=== PATIENT | male | born 1980 | race Hispanic/Latino ===

== ENCOUNTER 2021-12-22 20:49 | Emergency (ER) | payer OTHER ==
[2021-12-22] MEDS ORDERED: NA CHLORIDE 0.9% 1,000 ML ONE (21:15)
[2021-12-22] MEDS ORDERED: ASPIRIN 81 MG CHEWABLE TABLET ONE (21:15)
[2021-12-22 21:34] LABS: Hematocrit 37.7 % (39.6-49.0); MPV 8.4 fL (7.6-11.3); RBC Red Blood Cell Count 4.42 M/uL (4.33-5.43)
--- NOTE | 2021-12-22 21:39 | RAD REPORT ---
EXAM DESCRIPTION: RAD - Chest Single View - 12/22/2021 9:32 pm CLINICAL HISTORY: CHEST PAIN COMPARISON: <Comparisons> FINDINGS: Lines: None. Lungs: No evidence of edema or pneumonia. Pleural: No significant pleural effusions or pneumothorax. Cardiac: The heart size is within normal limits. Bones: No acute fractures. Other: IMPRESSION: No acute cardiopulmonary disease.
[2021-12-22 21:53] LABS: ALT/SGPT 15 U/L (12-78); AST/SGOT 8 U/L (15-37); Albumin 4.1 g/dL (3.4-5.0); Alkaline Phosphatase 93 U/L (45-117); BUN Blood Urea Nitrogen 17 mg/dL (7-18); Bicarbonate 24 mmol/L (21-32); Bilirubin Total 0.2 mg/dL (0.2-1.0); Glomerular Filtration Rate 98 ml/min (=/>90); Glucose Level 94 mg/dL (74-106); Lipase 134 U/L (73-393); Magnesium 2.2 mg/dL (1.8-2.4); NT PRO-BNP 35 pg/mL (<125); Potassium 3.7 mmol/L (3.5-5.1); Protein, Total 7.2 g/dL (6.4-8.2); Sodium Level 140 mmol/L (136-145); Troponin High Sensitivity 3.1 pg/mL (<58.9)
[2021-12-22 21:54] LABS: Bilirubin Direct < 0.1 mg/dL (0-0.2)
[2021-12-22 23:17] LABS: Barbiturates NEGATIVE (NEGATIVE); Benzodiazepines NEGATIVE (NEGATIVE); Cocaine NEGATIVE (NEGATIVE); METHAMPHETAM NEGATIVE (NEGATIVE); Methadone NEGATIVE (NEGATIVE); Opiates NEGATIVE (NEGATIVE); Phencyclidine NEGATIVE (NEGATIVE); THC Cannibis NEGATIVE (NEGATIVE)
--- NOTE | 2021-12-23 01:02 | ER ---
Nurse's Notes [facility] Name: Yair Negrete Age: 41 yrs Sex: Male : 1980 Arrival Date: 12/22/2021 Time: 20:51 Bed 7 Private MD: Diagnosis: Chest pain, unspecified Presentation: 12/22 21:02 Chief complaint: Patient states: started having chest pain around 1845 that radiates to sm5 L side of his neck and L arm. Coronavirus screen: Vaccine status: Patient reports being unvaccinated. Ebola Screen: No symptoms or risks identified at this time. Initial Sepsis Screen: Does the patient meet any 2 criteria? No. Patient's initial sepsis screen is negative. Does the patient have a suspected source of infection? No. Patient's initial sepsis screen is negative. Risk Assessment: Do you want to hurt yourself or someone else? Patient reports no desire to harm self or others. Onset of symptoms was December 22, 2021. 21:02 Method Of Arrival: Law Enforcement: [place] [employer] [facility] 21:02 Acuity: TISHA 3 sm5 Triage Assessment: 21:06 General: Appears in no apparent distress. Behavior is cooperative. Pain: Complains of sm5 pain in chest and left arm. Neuro: No deficits noted. Villagran Agitation-Sedation Scale (RASS): 0 - Alert and Calm Level of Consciousness is awake, alert, obeys commands, Oriented to person, place, time, situation. Cardiovascular: Reports chest pain, Capillary refill < 3 seconds Patient's skin is warm and dry. Respiratory: No deficits noted. Airway is patent Trachea midline Respiratory effort is even, unlabored. GI: No deficits noted. Historical: - Allergies: 21:04 No Known Allergies; sm5 - Home Meds: 21:04 None [Active]; sm5 - PMHx: 21:04 None; sm5 - Immunization history:: Client reports having NOT received the Covid vaccine. - Social history:: Smoking status: Patient denies any tobacco usage or history of. - Family history:: Mother has/had heart disease, Grandmother has/had heart disease, hypertension. Screenin:05 Abuse screen: Denies threats or abuse. Denies injuries from another. Nutritional sm5 screening: No deficits noted. Tuberculosis screening: No symptoms or risk factors identified. Fall Risk None identified. Assessment: 22:00 Reassessment: see triage assessment. 5 23:00 Reassessment: No changes from previously documented assessment. Patient and/or family [facility] updated on plan of care and expected duration. Pain level reassessed. 12/23 00:00 Reassessment: No changes from previously documented assessment. 5 01:00 Reassessment: No changes from previously documented assessment. Patient is alert, [facility] oriented x 3, equal unlabored respirations, skin warm/dry/pink. Vital Signs: 12/22 21:02 BP 127 / 79; Pulse 74; Resp 18; Temp 98.6(O); Pulse Ox 99% on R/A; Weight 68.04 kg; 5 Height 5 ft. 6 in. (167.64 cm); 23:00 BP 103 / 73; Pulse 64; Resp 19; Pulse Ox 98% on R/A; 5 12/23 00:00 BP 100 / 73; Pulse 63; Resp 17; Pulse Ox 96% on R/A; 5 01:00 BP 109 / 78; Pulse 59; Resp 17; Pulse Ox 98% on R/A; 5 12/22 21:02 Body Mass Index 24.21 (68.04 kg, 167.64 cm) [facility] ED Course: 12/22 20:51 Patient arrived in ED. [facility] 21:02 Frank Ewing MD is Attending Physician. [facility] 21:02 Keerthi Damian, JOSH is Primary Nurse. [facility] 21:04 Triage completed. [facility] 21:05 Arm band placed on right wrist. [facility] 21:06 Patient has correct armband on for positive identification. Bed in low position. Call [facility] light in reach. Side rails up X2. Client placed on continuous cardiac and pulse oximetry monitoring. NIBP monitoring applied. 21:07 Inserted saline lock: 20 gauge in right antecubital area, using aseptic technique. [facility] Blood collected. 21:34 XRAY Chest (1 view) In Process Unspecified. EDMS 22:59 UDS Sent. [facility] 12/23 01:15 IV discontinued, intact, bleeding controlled, No redness/swelling at site. Pressure [facility] dressing applied. 02:47 No provider procedures requiring assistance completed. [facility] Administered Medications: 12/22 21:23 Drug: NS 0.9% 1000 ml Route: IV; Rate: 1 bolus; Site: right antecubital; sm5 22:30 Follow up: IV Status: Completed infusion; IV Intake: 1000ml 5 21:23 Drug: Aspirin 81 mg Route: PO; 5 Medication: 21:06 VIS not applicable for this client. sm5 Intake: 22:30 IV: 1000ml; Total: 1000ml. sm5 Outcome: 12/23 01:02 Discharge ordered by MD. boles 01:15 Discharged to Law Enforcement 5 01:15 Condition: stable 01:15 Discharge instructions given to patient, Instructed on discharge instructions, follow up and referral plans. Demonstrated understanding of instructions, follow-up care. 02:48 Patient left the ED. sm5 Signatures: Dispatcher [employer] EDFrank Linda MD MD cha Mazur, Sarah, RN RN sm5
--- NOTE | 2021-12-23 01:02 | EDPHYS ---
Physician Documentation [facility] Name: Yair Negrete Age: 41 yrs Sex: Male : 1980 Arrival Date: 12/22/2021 Time: 20:51 Bed 7 Private MD: ZARIA Physician Frank Ewing HPI: 12/22 23:32 This 41 yrs old Male presents to ER via Law Enforcement with complaints of cp ramana on off since 630pm. 23:32 The patient has shortness of breath at rest, with light activity. Onset: The ramana symptoms/episode began/occurred 6 hour(s) ago. Duration: The symptoms are intermittent, with no pattern. The patient's shortness of breath has no apparent modifying factors. The patient or guardian reports chest pain that is located primarily in the anterior chest wall, bilaterally. The pain does not radiate. Associated signs and symptoms: The patient has no apparent associated signs or symptoms. Severity of symptoms: At their worst the symptoms were mild in the emergency department the symptoms are unchanged. Associated signs and symptoms: The patient has no apparent associated signs or symptoms. The chest pain is described as aching, sharp. Historical: - Allergies: 21:04 No Known Allergies; sm5 - Home Meds: 21:04 None [Active]; sm5 - PMHx: 21:04 None; sm5 - Immunization history:: Client reports having NOT received the Covid vaccine. - Social history:: Smoking status: Patient denies any tobacco usage or history of. - Family history:: Mother has/had heart disease, Grandmother has/had heart disease, hypertension. ROS: 23:32 Constitutional: Negative for fever, chills, and weight loss, Eyes: Negative for injury, ramana pain, redness, and discharge, ENT: Negative for injury, pain, and discharge, Neck: Negative for injury, pain, and swelling, Respiratory: Negative for shortness of breath, cough, wheezing, and pleuritic chest pain, Abdomen/GI: Negative for abdominal pain, nausea, vomiting, diarrhea, and constipation, Back: Negative for injury and pain, : Negative for injury, bleeding, discharge, and swelling, MS/Extremity: Negative for injury and deformity, Skin: Negative for injury, rash, and discoloration, Neuro: Negative for headache, weakness, numbness, tingling, and seizure, Psych: Negative for depression, anxiety, suicide ideation, homicidal ideation, and hallucinations, Allergy/Immunology: Negative for hives, rash, and allergies, Endocrine: Negative for neck swelling, polydipsia, polyuria, polyphagia, and marked weight changes, Hematologic/Lymphatic: Negative for swollen nodes, abnormal bleeding, and unusual bruising. 23:32 Cardiovascular: Positive for chest pain. Exam: 23:32 Constitutional: This is a well developed, well nourished patient who is awake, alert, ramana and in no acute distress. Head/Face: Normocephalic, atraumatic. Eyes: Pupils equal round and reactive to light, extra-ocular motions intact. Lids and lashes normal. Conjunctiva and sclera are non-icteric and not injected. Cornea within normal limits. Periorbital areas with no swelling, redness, or edema. ENT: Nares patent. No nasal discharge, no septal abnormalities noted. Tympanic membranes are normal and external auditory canals are clear. Oropharynx with no redness, swelling, or masses, exudates, or evidence of obstruction, uvula midline. Mucous membranes moist. Neck: Trachea midline, no thyromegaly or masses palpated, and no cervical lymphadenopathy. Supple, full range of motion without nuchal rigidity, or vertebral point tenderness. No Meningismus. Chest/axilla: Normal chest wall appearance and motion. Nontender with no deformity. No lesions are appreciated. Cardiovascular: Regular rate and rhythm with a normal S1 and S2. No gallops, murmurs, or rubs. Normal PMI, no JVD. No pulse deficits. Respiratory: Lungs have equal breath sounds bilaterally, clear to auscultation and percussion. No rales, rhonchi or wheezes noted. No increased work of breathing, no retractions or nasal flaring. Abdomen/GI: Soft, non-tender, with normal bowel sounds. No distension or tympany. No guarding or rebound. No evidence of tenderness throughout. Back: No spinal tenderness. No costovertebral tenderness. Full range of motion. Male : Normal genitalia with no discharge or lesions. Skin: Warm, dry with normal turgor. Normal color with no rashes, no lesions, and no evidence of cellulitis. MS/ Extremity: Pulses equal, no cyanosis. Neurovascular intact. Full, normal range of motion. Neuro: Awake and alert, GCS 15, oriented to person, place, time, and situation. Cranial nerves II-XII grossly intact. Motor strength 5/5 in all extremities. Sensory grossly intact. Cerebellar exam normal. Normal gait. Psych: Awake, alert, with orientation to person, place and time. Behavior, mood, and affect are within normal limits. 23:32 ECG was reviewed by the Attending Physician. Vital Signs: 21:02 BP 127 / 79; Pulse 74; Resp 18; Temp 98.6(O); Pulse Ox 99% on R/A; Weight 68.04 kg; [facility] Height 5 ft. 6 in. (167.64 cm); 23:00 BP 103 / 73; Pulse 64; Resp 19; Pulse Ox 98% on R/A; [facility] 12/23 00:00 BP 100 / 73; Pulse 63; Resp 17; Pulse Ox 96% on R/A; [facility] 01:00 BP 109 / 78; Pulse 59; Resp 17; Pulse Ox 98% on R/A; [facility] 12/22 21:02 Body Mass Index 24.21 (68.04 kg, 167.64 cm) [facility] MDM: 12/22 21:02 Patient medically screened. [place] 23:50 Differential diagnosis: Bronchitis abnormal EKG, acute myocardial infarction, acute ramana pericarditis, coronary artery disease Cholelithiasis costochondritis, esophagitis, gastritis, hiatal hernia, pneumonia, Pulmonary Embolism Unstable Angina. Antibiotic administration: Not indicated. HEART Score: History: Slightly Suspicious (0), ECG: Normal (0), Age: < or = 45 years (0), Risk Factors: No Risk Factors Known (0), Troponin: < or = 1 x Normal Limit (0). The patient's Wells Deep Vein Thrombosis Score was calculated as follows: Total Score: 0. This patient was found to be at low risk for a deep vein thrombosis by using the Well's assessment criteria Total Score: 0-2 Pts- Low Risk. The patient's pulmonary embolism risk score was calculated as follows: Total Score: 0-2 points. This patient was found to be at low risk for a pulmonary embolism by using the Well's assessment criteria Total Score: 0-2 points. This patient was found to be at low risk for a pulmonary embolism by using the Well's assessment criteria. [place] Risk Score: TOTAL SCORE = 0. Immunization status:. Data reviewed: vital signs, nurses notes, EMS record, radiologic studies, plain films. Data interpreted: mechanical assembler: rate is 74 beats/min, rhythm is regular, Pulse oximetry: on room air is 99 %. Test interpretation: by ED physician or midlevel provider: ECG, plain radiologic studies. Counseling: I had a detailed discussion with the patient and/or guardian regarding: the historical points, exam findings, and any diagnostic results supporting the discharge/admit diagnosis, lab results, radiology results, the need for outpatient follow up, for definitive care, a hog pusher. 12/22 21:04 Order name: Basic Metabolic Panel; Complete Time: 23:24 [facility] 12/22 21:04 Order name: CBC with Diff; Complete Time: 23: [facility] 12/22 21:04 Order name: D-Dimer; Complete Time: 23:24 12/22 21:04 Order name: LFT's; Complete Time: 23:24 12/22 21:04 Order name: Magnesium; Complete Time: 23:12/22 21:04 Order name: NT PRO-BNP; Complete Time: 23:12/22 21:04 Order name: PT-INR; Complete Time: 23:24 12/22 21:04 Order name: Troponin HS; Complete Time: 23:24 [facility] 12/22 21:04 Order name: XRAY Chest (1 view); Complete Time: 23:24 12/22 21:04 Order name: UDS; Complete Time: 23:24 12/22 21:04 Order name: Lipase; Complete Time: 23:12/22 23:25 Order name: Troponin High Sensitivity: 1130 pm; Complete Time: 01:02 12/22 21:04 Order name: EKG; Complete Time: 21:12/22 21:04 Order name: Cardiac monitoring; Complete Time: 21:12/22 21:04 Order name: EKG - Nurse/Tech; Complete Time: 21:12/22 21:04 Order name: IV Saline Lock; Complete Time: 21:12/22 21:04 Order name: Labs collected and sent; Complete Time: 21:23 12/22 21:04 Order name: O2 Per Protocol; Complete Time: 21:12/22 21:04 Order name: O2 Sat Monitoring; Complete Time: 21:08 ramana EC:32 Rate is 72 beats/min. Rhythm is regular. QRS Dalton is Normal. OK interval is normal. QRS ramana interval is normal. QT interval is normal. No Q waves. T waves are Normal. No ST changes noted. Clinical impression: Normal ECG and No evidence of ischemia. Interpreted by me. Reviewed by me. Administered Medications: 21:23 Drug: NS 0.9% 1000 ml Route: IV; Rate: 1 bolus; Site: right antecubital; 5 22:30 Follow up: IV Status: Completed infusion; IV Intake: 1000ml 5 21:23 Drug: Aspirin 81 mg Route: PO; 5 Disposition Summary: 12/23/21 01:02 Discharge Ordered Location: Home ramana Problem: new ramana Symptoms: have improved ramana Condition: Stable ramana Diagnosis - Chest pain, unspecified ramana Followup: ramana - With: Private Physician - When: 2 - 3 days - Reason: Recheck today's complaints, Continuance of care, Re-evaluation by your physician Discharge Instructions: - Discharge Summary Sheet ramana - Nonspecific Chest Pain, Adult ramana - Nonspecific Chest Pain, Adult, [id number] ramana - Aspirin and Your Heart rmaana Forms: - Medication Reconciliation Form ramana - Thank You Letter ramana - Antibiotic Education ramana - Prescription Opioid Use ramana Signatures: Dispatcher [employer] EDFrank Linda MD MD cha Mazur, Sarah, RN RN sm5
[2021-12-23 03:01] VITALS: TEMP 98.6
[2021-12-23 03:05] VITALS: BP 109/78; O2SAT 98
--- NOTE | 2021-12-23 15:29 | EKG ---
Test Date: 2021-12-22 Test Time: 21:04:08 Flash Designer: LINDA MEASUREMENT RESULTS: Intervals: Rate: 72 UT: 150 QRSD: 72 QT: 380 QTc: 416 Dodge: P: 49 UT: 150 QRS: 19 T: 50 INTERPRETIVE STATEMENTS: Normal sinus rhythm Low voltage QRS Borderline ECG No previous ECG available for comparison Electronically Signed On 12-23-21 15:27:20 CDT by Luis Fernando Villanueva
== END 2021-12-23 02:48 | disposition home or self-care (01) ==
LOC: ER 20:49
DX: R07.9 Chest pain, unspecified (principal); Z82.49 Family history of ischemic heart disease and other diseases of the circulatory system
CPT/HCPCS: 36415; 71045; 80048; 80076; 80307; 83690; 83735; 83880; 84484; 85025; 85379; 85610; 93005; 96360; 99284; J7030